=== PATIENT | female | born 1980 | race Caucasian/White ===

== ENCOUNTER 2017-01-29 05:54 | Emergency (ER) | payer OTHER ==
[~2017-01-29] VITALS: Ht 162.6 cm; Wt 140.6 kg
[~2017-01-29 05:54] MED LIST: ACETAMINOPHEN-120 ML PO; ACETAMINOPHEN500 MG; FLEXERIL PO; FLOXIN OTI0.3 %/5 M1 OT; IBUPROFEN 200200 M1; NORCO 5-325 TA1 EACH PO; PREDNISONE 20 M20 MG PO; SPRINTEC1 EACH PO; ZPAK PO
[2017-01-29] MEDS ORDERED: NORCO 5-325 TA1 EACH PO (06:38)
[2017-01-29 06:56] VITALS: BP 143/73
== END 2017-01-29 07:01 | disposition home or self-care (01) ==
LOC: ER 05:54
DX: S80.01XA Contusion of right knee, initial encounter (principal); F10.99 Alcohol use, unspecified with unspecified alcohol-induced disorder; Z88.0 Allergy status to penicillin; W18.39XA Other fall on same level, initial encounter; Y93.89 Activity, other specified; Y92.89 Other specified places as the place of occurrence of the external cause; Y99.8 Other external cause status

== ENCOUNTER 2020-11-29 23:12 | Inpatient (IN) | payer OTHER ==
[~2020-11-29] VITALS: Ht 162.6 cm; Wt 154.2 kg
[2020-11-29 23:13] VITALS: BP 165/105
[2020-11-30 00:19] LABS: URINE BILIRUBIN NEGATIVE (Negative); URINE BLOOD NEGATIVE (Negative); URINE CLARITY CLEAR; URINE COLOR YELLOW; URINE GLUCOSE-RANDOM* NEGATIVE (Negative); URINE KETONES NEGATIVE (Negative); URINE LEUKOCYTES-REFLEX NEGATIVE (Negative); URINE NITRITE-REFLEX NEGATIVE (Negative); URINE PROTEIN (DIPSTICK) NEGATIVE (Negative); URINE UROBILINOGEN 0.2 E.U./dl (0.2-1.0)
[2020-11-30 00:21] LABS: CALCIUM 8.7 mg/dL (8.5-10.1); CREATININE 0.8 mg/dL (0.6-1.0); POTASSIUM 3.5 mmol/L (3.5-5.1)
[2020-11-30 00:27] LABS: ALBUMIN 3.7 g/dL (3.4-5.0); TOTAL BILIRUBIN 0.3 mg/dL (0.2-1.0); TOTAL PROTEIN 7.6 g/dL (6.4-8.2)
[2020-11-30 01:41] LABS: ABSOLUTE NEUTROPHILS 9.7 thou/uL (1.4-8.2); BASOPHILS 0.6 % (0.0-2.0); EOSINOPHILS 0.3 % (0.0-3.0); HEMATOCRIT 37.3 % (37.0-47.0); HEMOGLOBIN 12.8 gm/dL (12.0-15.0); LYMPHOCYTES 12.6 % (24.0-44.0); MCH 29.3 pg (26.0-34.0); MCHC 34.3 g/dL (28.0-37.0); MCV 85.6 fL (80.0-100.0); MONOCYTES 3.1 % (1.0-8.0); PLATELET COUNT 275 thou/uL (150-400); POLYS 83.4 % (36.0-66.0); RBC 4.35 mil/uL (4.20-5.00); RDW 13.7 % (10.5-14.5); WBC 11.7 thou/uL (4.0-11.0)
[2020-11-30 04:48] VITALS: BP 147/84
[2020-11-30 05:59] LABS: AMP/METHAMP Negative (Negative); BARBITURATES Negative (Negative); BENZODIAZEPINES Negative (Negative); COCAINE Negative (Negative); METHADONE Negative (Negative); OPIATES Negative (Negative); PCP Negative (Negative)
--- NOTE | 2020-11-30 11:22 | NUR ---
ASSESSMENT: CM REVIEWED CHART AND MET WITH PATIENT. PT IS ALERT AND ORIENTED X4. PT WAS ADMITTED DUE TO ABDOMINAL PAIN, NAUSEA, AND VOMITTING. PT HAS GASTROENTERITIS. CT OF THE ABDOMEN WAS NORMAL. PT REMAINS ON IV FLUIDS. PT REPORTS THAT SHE LIVES IN A HOUSE WITH HER AND SISTER. PT REPORTS ABOUT 5 STEPS WITH HANDRAIL TO ENTER THE HOME AND A FULL FLIGHT OF STPES WITH HANDRAILS TO HER BEDROOM. PT REPORTS THAT SHE IS FULLY INDEPENDENT WITH ADLS AND AMBULATION. PT HAS NO DME. PT REPORTS NO HX OF HH OR POST ACUTE CARE. PT REPORTS SHE DOES NOT HAVE A PCP. CM ENCOURAGED PATIENT TO CONTACT MEDICAID IN ATTEMPTS TO FIND A PROVIDER WHO IS IN NETWORK. CM ALSO OFFERED CONTACT INFORMATION FOR [employer] BUT PT DECLINED. CM DISCUSSED ROLE. PT DOES NOT ANTICIPATE HAVING ANY NEEDS FROM . CM WILL CONTINUE TO FOLLOW.
--- NOTE | 2020-11-30 11:42 | NUR ---
PHYSICIAN INDICATED THAT PT WILL BE MEDICALLY STABLE TO DC HOME THIS DAY. PT WAS ENCOURAGED TO CONTACT MEDICAID FOR IN NETWORK PCP AND WAS OFFERED [facility] INFO AND DECLINED AT TIME OF ASSESSMENT. NO DC NEEDS ANTICIPATED. CASE CLOSED.
--- NOTE | 2020-11-30 11:49 | NUR ---
PATIENT ADMITTED FROM ED AT SHIFT CHANGE. PATIENT ADMITTED FOR N/V AND ABDOMINAL PAIN. DENIES ANY OF THE FOLLOWING UPON ASSESSMENT. PATIENT SLEPT WELL FOR A FEW HOURS AFTER BEING PLACED IN ROOM. ADMISSION ASSESSMENTS COMPLETE. IV FLUIDS STARTED. SEEN BY DR. HARRIS, PROBABLE PLAN FOR DISCHARGE THIS AFTERNOON IF TOLERATES DIET ADVANCEMENT AND MAINTAINS PAIN FREE WITH NO NEAUSEA/VOMITING. PATIENT DENIES ANY NEEDS AT THIS TIME. ALERT/ORIENTED, UP AD JOSE.
[2020-11-30] MEDS ORDERED: PROTONIX 20 MG20 M1 PO (15:22)
[2020-11-30] MEDS ORDERED: ONDANSETRON HCL4 M3 DISSOLVE (15:22)
[2020-11-30] MEDS ORDERED: ACETAMINOPHEN325 M1 PO (15:22)
[2020-11-30 15:42] VITALS: BP 147/84
[2020-11-30 15:44] VITALS: BP 147/84
--- NOTE | 2020-11-30 15:47 | NUR ---
IV DISCONTINUED. PATIENT WAITING FOR DISCHARGE ORDERS TO BE COMPLETE. VOICES NO NEES OR CONCERNS. FAMILY HERE TO TRANSPORT HOME.
--- NOTE | 2020-11-30 16:15 | NUR ---
PATIENT LEFT PRIOR TO SIGNING AND REVIEWING DISCHARGE PAPERWORK. CONTACTED PATIENT BY PHONE WHEN NOTICED HAD LEFT THE FACILITY. SPOKE WITH PATIENT ABOUT FOLLOW UP APPOINTMENT, AWARE OF SCIPTS SENT TO [facility]. EDUCATED ON MEDICATIONS. ADVISED TO CALL BACK WITH ANY QUESTIONS.
== END 2020-11-30 16:00 | disposition home or self-care (01) | DRG 392 ==
LOC: ER 23:12 → EROBS 11-30 03:59 → 4W 11-30 03:59
PROVIDERS: Emergency Medicine; ADMIT Internal Medicine; ATTEND Internal Medicine
DX: K52.9 Noninfective gastroenteritis and colitis, unspecified (principal); Z68.43 Body mass index [BMI] 50.0-59.9, adult; K21.9 Gastro-esophageal reflux disease without esophagitis; R03.0 Elevated blood-pressure reading, without diagnosis of hypertension; E66.01 Morbid (severe) obesity due to excess calories; Z79.899 Other long term (current) drug therapy; Z88.0 Allergy status to penicillin
CPT/HCPCS: 10040